=== PATIENT | female | born 1995 | race American Indian/Alaskan Native ===

== ENCOUNTER 2017-11-12 11:34 | Emergency (ER) | payer MEDICAID ==
[2017-11-12] MEDS ORDERED: Promethazine 12.5 MG in Sodium Chloride 0.9% 50 ML IV STA (11:55)
[2017-11-12] MEDS ORDERED: Lactated Ringers 1,000 ML IV ONE ×2 (11:55→13:50)
--- NOTE | 2017-11-12 11:58 | EDM.PDOC ---
ED HPI GENERAL MEDICAL PROBLEM - General Chief Complaint: Gastrointestinal Problem Stated Complaint: VOMITING; 34 WKS PGNT Time Seen by Provider: 11/12/17 11:50 Source of Information: Reports: Patient History Limitations: Reports: No Limitations - History of Present Illness INITIAL COMMENTS - FREE TEXT/NARRATIVE: 21 yo female here with nausea and vomiting that she has had throughout her . Is now at 34 weeks. Was seen yesterday in [place] and received IV fluids and anti-emetics. Her provider is on vacation so she asked the ambulance to take her here today. Says she's never had B6 + doxylamine for nausea of . Does not know what she was given for nausea yesterday in [place], but states it did not work very well for her. Onset: Unknown/Unsure Duration: Chronic Location: Reports: Abdomen Quality: Reports: Ache Severity: Mild Improves with: Reports: None Worsens with: Reports: Eating Context: Reports: Other (nausea and vomiting throughout her ) Associated Symptoms: Reports: Nausea/Vomiting. 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 Other OB/BYN History: Stillborn 10/2016 Dermatologic History: Reports: Other (See Below) Other Dermatologic History: Scabies - Past Surgical History Female Surgical History: Reports: D&C Social & Family History - Tobacco Use Smoking Status *Q: Never Smoker Years of Tobacco use: 10 Packs/Tins Daily: 0.5 - Recreational Drug Use Recreational Drug Use: No Drug Use in Last 12 Months: Yes Recreational Drug Type: Reports: Marijuana/Hashish Recreational Drug Use Frequency: Daily ED ROS GENERAL - Review of Systems Review Of Systems: See Below Constitutional: Reports: No Symptoms HEENT: Reports: No Symptoms Respiratory: Reports: No Symptoms Cardiovascular: Reports: No Symptoms Endocrine: Reports: No Symptoms GI/Abdominal: Reports: No Symptoms : Reports: No Symptoms Musculoskeletal: Reports: No Symptoms Skin: Reports: No Symptoms Neurological: Reports: No Symptoms ED EXAM, GI/ABD - Physical Exam Exam: See Below Exam Limited By: No Limitations General Appearance: Alert, WD/WN, No Apparent Distress Eyes: Bilateral: Normal Appearance, EOMI Ears: Normal External Exam, Normal Canal, Hearing Grossly Normal, Normal TMs Nose: Normal Inspection, Normal Mucosa, No Blood Throat/Mouth: Normal Inspection, Normal Lips, Normal Teeth, Normal Oropharynx, Normal Voice, No Airway Compromise Head: Atraumatic, Normocephalic Neck: Normal Inspection, Supple, Non-Tender Respiratory/Chest: No Respiratory Distress, Lungs Clear, Normal Breath Sounds, No Accessory Muscle Use Cardiovascular: Regular Rate, Rhythm, No Edema GI/Abdominal Exam: Normal Bowel Sounds, Soft, Non-Tender, No Distention, Other ( gravid) Back Exam: Normal Inspection. No: CVA Tenderness (R), CVA Tenderness (L) Extremities: Normal Inspection, Normal Range of Motion, Non-Tender, No Pedal Edema Neurological: Alert, Oriented, CN II-XII Intact, Normal Cognition, No Motor/ Sensory Deficits Psychiatric: Normal Affect, Normal Mood Skin Exam: Warm, Dry, Intact, Normal Color, No Rash Lymphatic: No Adenopathy Course - Vital Signs Last Recorded V/S: Last Vital Signs Temp 35.7 C 11/12/17 11:39 Pulse 65 11/12/17 14:05 Resp 18 11/12/17 14:05 BP 140/74 11/12/17 14:05 Pulse Ox 98 11/12/17 14:05 - Orders/Labs/Meds Labs: Laboratory Tests 11/12/17 11/12/17 11/12/17 Range/Units 11:56 13:42 14:04 Sodium 140 (140-148) mmol/L Potassium 3.5 L (3.6-5.2) mmol/L Chloride 106 (100-108) mmol/L Carbon Dioxide 23 (21-32) mmol/L Anion Gap 14.5 H (5.0-14.0) mmol/L BUN 6 L (7-18) mg/dL Creatinine 0.6 (0.6-1.0) mg/dL Est Cr Clr Drug Dosing TNP Estimated GFR (MDRD) > 60 (>60) Glucose 115 H (74-106) mg/dL Calcium 8.2 L (8.5-10.1) mg/dL Magnesium 1.7 L (1.8-2.4) mg/dL Urine Color Yellow Urine Appearance Cloudy Urine pH 8.0 (4.5-8.0) Ur Specific [place] 1.015 (1.008-1.030) Urine Protein Negative (NEGATIVE) mg/dL Urine Glucose (UA) Normal (NEGATIVE) mg/dL Urine Ketones 50 H (NEGATIVE) mg/dL Urine Occult Blood Negative (NEGATIVE) Urine Nitrite Negative (NEGATIVE) Urine Bilirubin Negative (NEGATIVE) Urine Urobilinogen Normal (NORMAL) mg/dL Ur Leukocyte Esterase Negative (NEGATIVE) Urine RBC Not seen (0-5) Urine WBC 0-5 (0-5) Ur Epithelial Cells Many Amorphous Sediment Moderate Urine Bacteria Not seen Urine Mucus Rare Meds: Medications Discontinued Medications Generic Name Dose Route Start Last Admin Trade Name Freq PRN Reason Stop Dose Admin Lactated Ringer's 1,000 mls @ 1,000 mls/hr 11/12/17 11:55 11/12/17 12:37 Ringers, Lactated IV 11/12/17 12:54 1,000 mls/hr BOLUS ONE Administration Promethazine HCl 12.5 mg/ 50.5 mls @ 200 mls/hr 11/12/17 11:55 11/12/17 12:49 Sodium Chloride IV 11/12/17 12:10 Not Given NOW STA Promethazine HCl 12.5 mg/ 50.5 mls @ 150 mls/hr 11/12/17 12:45 11/12/17 12:44 Sodium Chloride IV 11/12/17 13:05 150 mls/hr NOW ONE Administration Lactated Ringer's 1,000 mls @ 1,000 mls/hr 11/12/17 13:50 11/12/17 14:01 Ringers, Lactated IV 11/12/17 14:49 1,000 mls/hr BOLUS ONE Administration Magnesium Oxide 800 mg 11/12/17 13:49 11/12/17 14:01 Magnesium Oxide PO 11/12/17 13:50 800 mg ONETIME ONE Administration Ondansetron HCl 4 mg 11/12/17 13:50 11/12/17 14:01 Zofran Odt PO 11/12/17 13:51 4 mg ONETIME ONE Administration Potassium Chloride 40 meq 11/12/17 13:48 11/12/17 14:01 Klor-Con M20 PO 11/12/17 13:49 40 meq ONETIME ONE Administration Pyridoxine HCl 25 mg 11/12/17 12:28 11/12/17 12:46 Vitamin B6-Pyridoxine PO 11/12/17 12:29 25 mg NOW STA Administration Departure - Departure Time of Disposition: 15:57 Disposition: Home, Self-Care 01 Condition: Fair Clinical Impression: Hyperemesis gravidarum, Mild dehydration - Discharge Information Referrals: PCP,None [Ordering Only Provider] - Forms: ED Department Discharge
[2017-11-12] MEDS ORDERED: Vitamin B6-pyridOXINE 50 MG Tab PO STA (12:28)
[2017-11-12] MEDS ORDERED: Promethazine 12.5 MG in Sodium Chloride 0.9% 50 ML IV ONE (12:45)
[2017-11-12] MEDS ORDERED: Potassium Chloride 20 MEQ Tab.ER PO ONE (13:48)
[2017-11-12] MEDS ORDERED: Magnesium Oxide 400 MG Tab PO ONE (13:49)
[2017-11-12] MEDS ORDERED: Ondansetron 4 MG Tab.DIS PO ONE (13:50)
[2017-11-12 14:06] VITALS: BP 140/74
== END 2017-11-12 16:12 | disposition home or self-care (01) ==
LOC: JP.ED 11:34
DX: O21.1 Hyperemesis gravidarum with metabolic disturbance (principal); Z3A.34 34 weeks gestation of pregnancy; Z72.0 Tobacco use
CPT/HCPCS: 36415; 80048; 81001; 83735; 96361; 96365; 99284; A9270; J2550; J7050; J7120

== ENCOUNTER 2020-02-03 12:04 | Emergency (ER) | payer MEDICAID ==
[2020-02-03] MEDS ORDERED: Ondansetron 4 MG/2 ML SDV IVPUSH ONE (12:26)
[2020-02-03] MEDS ORDERED: Ketorolac 30 MG/ML SDV IVPUSH ONE (12:26)
--- NOTE | 2020-02-03 12:26 | EDM.PDOC ---
ED HPI GENERAL MEDICAL PROBLEM - General Chief Complaint: Abdominal Pain Stated Complaint: MED VIA [facility] Time Seen by Provider: 02/03/20 12:17 Source of Information: Reports: Patient - History of Present Illness INITIAL COMMENTS - FREE TEXT/NARRATIVE: 24 year old female presents to ER with acute onset abdominal pain this am. She presents via EMS this am from home. Patient delivered baby 3 weeks ago, all babies delivery vaginally, per patient. Patient had hyperemesis throughout . Patient has not taken any medications this am and no available nausea medications at home. Patient was in a normal state for health yesterday without pain, nausea or acute concerns. Patient denies alcohol or marijuana use last night. Patient denies urinary symptoms and had a normal bowel movement this am. Patient denies fever, ST, URI symptoms or cough. - Related Data Allergies Allergy/AdvReac Type Severity Reaction Status Date / Time No Known Allergies Allergy Verified 02/03/20 12:10 Home Meds: Home Meds Magnesium 250 - 500 mg PO BEDTIME 30 Days #60 tablet 02/03/20 [Rx] Ondansetron [Zofran ODT] 4 mg PO Q6H PRN 2 Days #5 tab.dis 02/03/20 [Rx] Promethazine [Phenadoz] 25 mg RECTAL Q6H PRN 5 Days #10 supp 02/03/20 [Rx] Past Medical History - Past Health History Medical/Surgical History: Denies Medical/Surgical History HEENT History: Reports: Other (See Below) Other HEENT History: Multiple piercings Gastrointestinal History: Reports: Other (See Below) Other Gastrointestinal History: Chronic abdmonial pain X 2 years 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 Reason Not Obtained: limited due to mumbling and decline questioning ED EXAM, GI/ABD - Physical Exam Exam: See Below General Appearance: Alert, WD/WN, Moderate Distress (moving around in bed due to nausea and vague non focal abdominal pain) Eyes: Bilateral: Normal Appearance, EOMI Ears: Normal External Exam Nose: Normal Inspection Throat/Mouth: Normal Voice, No Airway Compromise Head: Atraumatic Neck: Normal Inspection, Supple, Non-Tender, Full Range of Motion Respiratory/Chest: No Respiratory Distress, Lungs Clear, Normal Breath Sounds Cardiovascular: Regular Rate, Rhythm, No Edema GI/Abdominal Exam: Soft, Tender (vague no focal discomfort ). No: Distended, Guarding, Rigid, Rebound (Female) Exam: Deferred Rectal (Female) Exam: Deferred Back Exam: Normal Inspection. No: CVA Tenderness (R), CVA Tenderness (L) Extremities: Normal Inspection. No: Limited Range of Motion Neurological: Alert, Oriented, CN II-XII Intact, Normal Cognition Psychiatric: Anxious Skin Exam: Warm, Dry, Intact, Normal Color, No Rash Course - Vital Signs Last Recorded V/S: Last Vital Signs Temp 36.4 C 02/03/20 15:33 Pulse 64 02/03/20 15:33 Resp 16 02/03/20 15:33 BP 133/84 02/03/20 16:35 Pulse Ox 98 02/03/20 15:33 - Orders/Labs/Meds Labs: Laboratory Tests 02/03/20 02/03/20 02/03/20 Range/Units 12:40 12:40 13:26 Sodium 145 (140-148) mmol/L Potassium 3.5 L (3.6-5.2) mmol/L Chloride 110 H (100-108) mmol/L Carbon Dioxide 19 L (21-32) mmol/L Anion Gap 19.5 H (5.0-14.0) mmol/L BUN 9 (7-18) mg/dL Creatinine 0.6 (0.6-1.0) mg/dL Est Cr Clr Drug Dosing 103.85 mL/min Estimated GFR (MDRD) > 60 (>60) Glucose 115 H (74-106) mg/dL Calcium 8.2 L (8.5-10.1) mg/dL Magnesium 1.4 L (1.8-2.4) mg/dL C-Reactive Protein 0.04 (0.0-0.3) mg/dL Urine Color Yellow (YELLOW) Urine Appearance Clear (CLEAR) Urine pH 7.5 (5.0-8.0) Ur Specific [place] >= 1.030 (1.008-1.030) Urine Protein Negative (NEGATIVE) mg/dL Urine Glucose (UA) Negative (NEGATIVE) mg/dL Urine Ketones 40 H (NEGATIVE) mg/dL Urine Occult Blood Moderate H (NEGATIVE) Urine Nitrite Negative (NEGATIVE) Urine Bilirubin Negative (NEGATIVE) Urine Urobilinogen 0.2 (0.2-1.0) EU/dL Ur Leukocyte Esterase Negative (NEGATIVE) Urine RBC 10-20 H (0-5) Urine WBC 0-5 (0-5) Ur Epithelial Cells Many Amorphous Sediment Few Urine Bacteria Not seen Urine Mucus Rare Meds: Medications Discontinued Medications Generic Name Dose Route Start Last Admin Trade Name Freq PRN Reason Stop Dose Admin Diphenhydramine HCl 50 mg 02/03/20 13:21 02/03/20 13:37 Benadryl IVPUSH 02/03/20 13:22 50 mg ONETIME ONE Administration Sodium Chloride 1,000 mls @ 500 mls/hr 02/03/20 12:30 02/03/20 12:31 Normal Saline IV 500 mls/hr ASDIRECTED JORDI Administration Magnesium Sulfate 2 gm/ Premix 50 mls @ 12.5 mls/hr 02/03/20 13:15 02/03/20 13:22 IV 02/03/20 17:14 12.5 mls/hr ONETIME ONE Administration Sodium Chloride 1,000 mls @ 500 mls/hr 02/03/20 14:30 Normal Saline IV ASDIRECTED JORDI Ketorolac Tromethamine 30 mg 02/03/20 12:26 02/03/20 12:31 Toradol IVPUSH 02/03/20 12:27 30 mg ONETIME ONE Administration Olanzapine 5 mg 02/03/20 13:22 02/03/20 13:37 Zyprexa IM 02/03/20 13:23 5 mg ONETIME ONE Administration Ondansetron HCl 4 mg 02/03/20 12:26 02/03/20 12:31 Zofran IVPUSH 02/03/20 12:27 4 mg ONETIME ONE Administration - Re-Assessments/Exams Free Text/Narrative Re-Assessment/Exam: Reassessment completed: symptoms briefly improved with medications but recurrent symptoms and requesting hot shower. Patient wants heating pad plugged in to help with symptoms. Patient is educated about hot shower and heating pad is the usually treatment for hyperemesis due to marijuana use "I have been told about that and I do not want to talk about it". Laboratory results available noting normal BMP and CRP. Magnesium test noting low result which may be a result of vomiting or the reason for vomiting. Magnesium 2GM IV ordered. Patient will be given anxiety/sedative drugs for the treatment of hyperemesis cannabis. 02/03/20 13:23 Urine test available which show dehydration and slight amount of blood (patient reports) still bleeding after vaginal delivery 3 weeks ago. Repeat liter of fluids ordered due to dehydration concerns. 02/03/20 14:14 Reassessed patient, symptoms are much improved and feel well enough to drink water. If able to keep po fluids down she may be discharged home with a safe ride. Patient is prescribed nausea medications for home use. 02/03/20 14:42 Patient is sleeping and recently declined po fluids. Nursing staff will allow her to sleep at this time, as she will need a safe ride for discharge. 02/03/20 15:56 Departure - Departure Time of Disposition: 17:00 Disposition: Home, Self-Care 01 Clinical Impression: Vomiting, Dehydration, Hypomagnesemia - Discharge Information Prescriptions: Magnesium 250 - 500 mg PO BEDTIME 30 Days #60 tablet Ondansetron [Zofran ODT] 4 mg PO Q6H PRN 2 Days #5 tab.dis PRN Reason: Vomiting Promethazine [Phenadoz] 25 mg RECTAL Q6H PRN 5 Days #10 supp PRN Reason: Nausea Instructions: Hypomagnesemia, Vomiting, Adult, Dehydration, Adult Referrals: PCP,None [Primary Care Provider] - Forms: ED Department Discharge Additional Instructions: 1. Increase fluid intake recommended due to dehydration. 2. Magnesium 400mg 1-2 tablets at bedtime for prevention of low magnesium. 3. Continue breast feeding 3 week old infant but may be difficult if you are dehydrated. 4. Zofran ODT 4-8mg as needed for nausea and vomiting. 5. Phenergan SC as needed for nausea and vomiting if zofran does not help. 6. Call PCP for recheck in 3-5 days if not improving, sooner if symptoms worsen or new concerns. 7. Return to ER if worsening symptoms over the weekend. Sepsis Event Note - Evaluation Sepsis Screening Result: No Definite Risk - Focused Exam Date Exam was Performed: 02/04/20 Time Exam was Performed: 15:04 - Problem List & Annotations (1) Hypomagnesemia SNOMED Code(s): 503409349 Code(s): E83.42 - HYPOMAGNESEMIA Status: Acute (2) Mild dehydration SNOMED Code(s): 5269524131317 Code(s): E86.0 - DEHYDRATION Status: Acute
[2020-02-03] MEDS ORDERED: Sodium Chloride 0.9% 1,000 ML IV SCH ×2 (12:30→14:30)
[2020-02-03] MEDS ORDERED: Magnesium Sulfate/Water 2 GM in Premix Bag 1 BAG IV ONE (13:15)
[2020-02-03] MEDS ORDERED: diphenhydrAMINE 50 MG/ML SDV IVPUSH ONE (13:21)
[2020-02-03] MEDS ORDERED: OLANZapine 10 MG Vial IM ONE (13:22)
[2020-02-03 15:35] VITALS: PULSE 64
[2020-02-03 16:35] VITALS: BP 133/84
== END 2020-02-03 17:22 | disposition home or self-care (01) ==
LOC: JP.ED 12:04
DX: O99.285 Endocrine, nutritional and metabolic diseases complicating the puerperium (principal); E86.0 Dehydration; E83.42 Hypomagnesemia; O99.335 Smoking (tobacco) complicating the puerperium; F17.210 Nicotine dependence, cigarettes, uncomplicated
CPT/HCPCS: 36415; 80048; 81001; 83735; 86140; 96361; 96365; 96366; 96372; 96375; 99284; J1200; J1885; J2405; J3475; J3490; J7030

== ENCOUNTER 2020-04-19 12:43 | Emergency (ER) | payer MEDICAID ==
[2020-04-19 12:50] VITALS: BP 112/65; PULSE 70
[2020-04-19] MEDS ORDERED: Lactated Ringers 1,000 ML IV ONE (12:58)
[2020-04-19] MEDS ORDERED: Ketorolac 30 MG/ML SDV IVPUSH ONE (12:59)
[2020-04-19] MEDS ORDERED: Prochlorperazine 10 MG/2 ML SDV IVPUSH ONE (12:59)
[2020-04-19] MEDS ORDERED: diphenhydrAMINE 50 MG/ML SDV IVPUSH ONE (12:59)
--- NOTE | 2020-04-19 13:11 | EDM.PDOC ---
ED HPI GENERAL MEDICAL PROBLEM - General Chief Complaint: Abdominal Pain Stated Complaint: MEDICAL [facility]IA [facility] Time Seen by Provider: 04/19/20 13:05 Source of Information: Reports: Patient, EMS, Old Records History Limitations: Reports: No Limitations - History of Present Illness INITIAL COMMENTS - FREE TEXT/NARRATIVE: 24 yo NA female daily marijuana user presents from her home via EMS for nausea, vomiting and abdominal pain since night. Has a pHx of cannabinoid hyperemesis syndrome and was seen in the [place] ER yesterday where they felt she had this same condition. She decided to come here today instead of returning there because they "only gave her one bad of IV fluids and wouldn't give her Dilaudid". She does not have a primary care provider. She denies fever, hematemesis or melena. Is asking if she can have a hot shower. Had a neg preg test yesterday. Her tx included Toradol, Reglan, and diphenhydramine and according to [facility] records was improved when she was discharged. Onset: Gradual Onset Date: 04/17/20 Duration: Day(s): (1.5) Location: Reports: Abdomen Quality: Reports: Other (cramping) Severity: Moderate Improves with: Reports: Medication Worsens with: Reports: Other (? marijuana use) Context: Reports: Other (See HPI) Associated Symptoms: Reports: Nausea/Vomiting. Denies: Fever/Chills Treatments CEO & BOARD DIRECTOR: Reports: Other (see below) (none today) - Related Data Allergies Allergy/AdvReac Type Severity Reaction Status Date / Time No Known Allergies Allergy Verified 04/19/20 12:50 Home Meds: Home Meds Ondansetron [Zofran ODT] 4 mg PO Q6H PRN #6 tab.dis 04/19/20 [Rx] Past Medical History - Past Health History Medical/Surgical History: Denies Medical/Surgical History HEENT History: Reports: Other (See Below) Other HEENT History: Multiple piercings Gastrointestinal History: Reports: Other (See Below) Other Gastrointestinal History: Chronic abdmonial pain X 2 years 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: , 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 Denies: Fever, Chills HEENT: Reports: No Symptoms Respiratory: Reports: No Symptoms Cardiovascular: Reports: No Symptoms GI/Abdominal: Reports: Abdominal Pain : Reports: No Symptoms Musculoskeletal: Reports: No Symptoms Skin: Reports: No Symptoms Neurological: Reports: No Symptoms ED EXAM, GI/ABD - Physical Exam Exam: See Below Exam Limited By: No Limitations General Appearance: Alert, WD/WN, No Apparent Distress Eyes: Bilateral: Normal Appearance Ears: Normal External Exam, Normal Canal, Hearing Grossly Normal Nose: Normal Inspection, No Blood Throat/Mouth: Normal Inspection, Normal Lips, Normal Oropharynx, Normal Voice, No Airway Compromise Head: Atraumatic, Normocephalic Neck: Normal Inspection Respiratory/Chest: No Respiratory Distress, Lungs Clear, Normal Breath Sounds, No Accessory Muscle Use Cardiovascular: Regular Rate, Rhythm, No Edema GI/Abdominal Exam: Normal Bowel Sounds, Soft, Non-Tender, No Distention Back Exam: Normal Inspection. No: CVA Tenderness (R), CVA Tenderness (L) Extremities: Normal Inspection, Normal Range of Motion, Non-Tender, No Pedal Edema. No: Pedal Edema Neurological: Alert, Oriented, CN II-XII Intact, Normal Cognition, No Motor/Sensory Deficits Psychiatric: Normal Affect, Normal Mood Skin Exam: Warm, Dry, Intact, Normal Color, No Rash Course - Vital Signs Last Recorded V/S: Last Vital Signs Temp 36.6 C 04/19/20 12:56 Pulse 70 04/19/20 12:56 Resp 10 L 04/19/20 12:56 BP 112/65 04/19/20 12:56 Pulse Ox 99 04/19/20 12:56 - Orders/Labs/Meds Meds: Medications Discontinued Medications Generic Name Dose Route Start Last Admin Trade Name Freq PRN Reason Stop Dose Admin Diphenhydramine HCl 50 mg 04/19/20 12:59 04/19/20 13:19 Benadryl IVPUSH 04/19/20 13:00 50 mg ONETIME ONE Administration Lactated Ringer's 1,000 mls @ 1,000 mls/hr 04/19/20 12:58 04/19/20 13:10 Ringers, Lactated IV 04/19/20 13:57 1,000 mls/hr BOLUS ONE Administration Ketorolac Tromethamine 30 mg 04/19/20 12:59 04/19/20 13:17 Toradol IVPUSH 04/19/20 13:00 30 mg ONETIME ONE Administration Prochlorperazine Edisylate 10 mg 04/19/20 12:59 04/19/20 13:12 Compazine IVPUSH 04/19/20 13:00 10 mg ONETIME ONE Administration - Re-Assessments/Exams Free Text/Narrative Re-Assessment/Exam: 04/19/20 13:49 Is sleeping comfortably. Departure - Departure Time of Disposition: 14:15 Disposition: Home, Self-Care 01 Condition: Fair Clinical Impression: Cannabinoid hyperemesis syndrome - Discharge Information *PRESCRIPTION DRUG MONITORING PROGRAM REVIEWED*: No *COPY OF PRESCRIPTION DRUG MONITORING REPORT IN PATIENT SANIA: No Prescriptions: Ondansetron [Zofran ODT] 4 mg PO Q6H PRN #6 tab.dis PRN Reason: Nausea Instructions: Cannabis Use Disorder Referrals: PCP,None [Primary Care Provider] - Forms: ED Department Discharge Additional Instructions: Avoid use of marijuana to eventually prevent a recurrence of what you are experiencing today. Get established with a primary care provider of your choice for follow up. Use Zofran as needed for nausea control. Sepsis Event Note (ED) - Evaluation Sepsis Screening Result: No Definite Risk - Focused Exam Vital Signs: Vital Signs Temp Pulse Resp BP Pulse Ox 04/19/20 12:56 36.6 C 70 10 L 112/65 99 04/19/20 12:48 36.6 C 70 10 L 112/65 99
== END 2020-04-19 14:50 | disposition home or self-care (01) ==
LOC: JP.ED 12:43
DX: R11.2 Nausea with vomiting, unspecified (principal); F17.210 Nicotine dependence, cigarettes, uncomplicated
CPT/HCPCS: 96361; 96374; 96375; 99284; J0780; J1200; J1885; J7120

== ENCOUNTER 2020-07-17 20:57 | Emergency (ER) | payer MEDICAID ==
[2020-07-17 23:53] VITALS: PULSE 72
[2020-07-18] MEDS ORDERED: Ondansetron 4 MG/2 ML SDV IVPUSH ONE (00:31)
[2020-07-18] MEDS ORDERED: Sodium Chloride 0.9% 1,000 ML IV ONE (00:31)
[2020-07-18] MEDS ORDERED: HYDROmorphone 0.5 MG/0.5 ML Syringe IVPUSH ONE (00:31)
[2020-07-18] MEDS ORDERED: Sodium Chloride 0.9% 80 ML IV SCH (00:45)
[2020-07-18] MEDS ORDERED: Iopamidol 612 MG/ML 100 ML Bottle IV SCH (00:45)
--- NOTE | 2020-07-18 01:22 | EDM.PDOC ---
ED HPI GENERAL MEDICAL PROBLEM - General Chief Complaint: Abdominal Pain Stated Complaint: ABD PAIN VIA NORTH Time Seen by Provider: 07/18/20 00:08 Source of Information: Reports: Patient, EMS History Limitations: Reports: No Limitations - History of Present Illness INITIAL COMMENTS - FREE TEXT/NARRATIVE: Baylee is a 24-year-old female presenting to the ED with 2-day history of abdominal pain, nausea and vomiting, and diarrhea. The patient underwent an elective at [facility] in [place] 2 days ago. She states that after the which was a suction , she started to feel ill and on the ride home started vomiting. 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 She has had minimal bleeding since the elective . She states that she may have had a fever after leaving the [facility] clinic and was having chills. She denies having any current fever but still has intermittent chills and some diaphoresis at times. She also has not been able to eat or drink much because of the degree of nausea and vomiting. She is starting to feel lightheaded. Her predominant complaint is abdominal cramping throughout the abdomen. 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 abortionx2 Hematologic History: Reports: Anemia Dermatologic History: Reports: Other (See Below) Other Dermatologic History: Scabies - Infectious Disease History Infectious Disease History: Reports: Chicken Pox, MRSA, Other (See Below) Other Infectious Disease History: MRSA in nose - Past Surgical History Female Surgical History: Reports: D&C Social & Family History - Tobacco Use Tobacco Use Status *Q: Current Every Day Tobacco User Years of Tobacco use: 10 Packs/Tins Daily: 0.5 - Caffeine Use Caffeine Use: Reports: None - Recreational Drug Use Recreational Drug Use: Yes Drug Use in Last 12 Months: Yes Recreational Drug Type: Reports: Marijuana/Hashish Recreational Drug Use Frequency: Socially ED ROS GENERAL - Review of Systems Review Of Systems: See Below Constitutional: Reports: Fever, Chills, Malaise, Decreased Appetite HEENT: Reports: No Symptoms Respiratory: Reports: No Symptoms Cardiovascular: Reports: No Symptoms ( ) Endocrine: Reports: No Symptoms GI/Abdominal: Reports: Abdominal Pain, Diarrhea, Nausea, Vomiting : Reports: Pain, Other (Light bleeding) Musculoskeletal: Reports: No Symptoms Skin: Reports: No Symptoms Neurological: Reports: No Symptoms Psychiatric: Reports: No Symptoms Hematologic/Lymphatic: Reports: No Symptoms Immunologic: Reports: No Symptoms ED EXAM, GI/ABD - Physical Exam Exam: See Below Exam Limited By: No Limitations General Appearance: Alert, WD/WN, Mild Distress Eyes: Bilateral: EOMI Throat/Mouth: Normal Inspection, Normal Lips, Other (Mucous membranes are dry) Head: Atraumatic, Normocephalic Neck: Normal Inspection, Supple, Non-Tender, Full Range of Motion Respiratory/Chest: No Respiratory Distress, Lungs Clear, Normal Breath Sounds, No Accessory Muscle Use, Chest Non-Tender Cardiovascular: Normal Peripheral Pulses, Regular Rate, Rhythm, No Edema, No Gallop, No JVD, No Murmur, No Rub GI/Abdominal Exam: Guarding, Tender (Diffusely tender with tympany to percussion throughout the abdomen), Abnormal Bowel Sounds (Hyperactive bowel sounds). No: Distended, Rigid, Rebound (Female) Exam: Deferred Rectal (Female) Exam: Deferred Back Exam: Normal Inspection, Full Range of Motion Extremities: Normal Inspection, Normal Range of Motion, Non-Tender, No Pedal Edema, Normal Capillary Refill Neurological: Alert, Oriented, Normal Cognition, No Motor/Sensory Deficits Psychiatric: Normal Affect, Anxious Skin Exam: Warm, Dry Lymphatic: No Adenopathy Course - Vital Signs Last Recorded V/S: Last Vital Signs Temp 35.9 C L 07/17/20 22:16 Pulse 72 07/17/20 23:52 Resp 18 07/18/20 01:44 BP 106/56 L 07/18/20 01:44 Pulse Ox 100 07/18/20 01:44 - Orders/Labs/Meds Orders: Active Orders 24 hr Category Date Time Status Pelvis Non OB Ltd [US] Stat Exams 07/18/20 01:32 Taken VL Duplex Abd Pel Ret Ltd [US] Stat Exams 07/18/20 02:55 Taken CORONAVIRUS COVID-19, AIME Stat Lab 07/18/20 03:20 Ordered TYPE AND SCREEN [BBK] Stat Lab 07/18/20 03:21 Ordered Iopamidol [Isovue-300 (61%)] Med 07/18/20 00:45 Active 81 ml IV . DIRECTED Sodium Chloride 0.9% [Normal Saline] 80 ml Med 07/18/20 00:45 Active IV ASDIRECTED Medication Orders Sodium Chloride (Normal Saline) 80 mls @ 3 mls/sec IV ASDIRECTED JORDI Last Admin: 07/18/20 01:00 Dose: 3 mls/sec Documented by: [email or web address] Iopamidol (Isovue-300 (61%)) 81 ml IV . DIRECTED JORDI Last Admin: 07/18/20 01:00 Dose: 81 ml Documented by: [email or web address] Labs: Laboratory Tests 07/18/20 07/18/20 07/18/20 Range/Units 00:40 00:40 00:40 WBC 10.4 (4.5-11.0) K/uL RBC 3.88 (3.30-5.50) M/uL Hgb 11.1 L (12.0-15.0) g/dL Hct 33.6 L (36.0-48.0) % MCV 87 (80-98) fL MCH 29 (27-31) pg MCHC 33 (32-36) % Plt Count 206 (150-400) K/uL Neut % (Auto) 67 H (36-66) % Lymph % (Auto) 27 (24-44) % Addison % (Auto) 6 (2-6) % Eos % (Auto) 0 L (2-4) % Baso % (Auto) 0 (0-1) % Sodium 135 L (140-148) mmol/L Potassium 3.4 L (3.6-5.2) mmol/L Chloride 103 (100-108) mmol/L Carbon Dioxide 20 L (21-32) mmol/L Anion Gap 15.4 H (5.0-14.0) mmol/L BUN 20 H D (7-18) mg/dL Creatinine 0.8 (0.6-1.0) mg/dL Est Cr Clr Drug Dosing 77.89 mL/min Estimated GFR (MDRD) > 60 (>60) Glucose 90 (74-106) mg/dL Lactic Acid 0.5 (0.4-2.0) mmol/L Calcium 8.0 L (8.5-10.1) mg/dL Total Bilirubin 0.4 (0.2-1.0) mg/dL AST 11 L (15-37) U/L ALT 18 (12-78) U/L Alkaline Phosphatase 50 (46-116) U/L C-Reactive Protein 0.52 H (0.0-0.3) mg/dL Total Protein 6.7 (6.4-8.2) g/dL Albumin 3.6 (3.4-5.0) g/dL Globulin 3.1 (2.3-3.5) g/dL Albumin/Globulin Ratio 1.2 (1.2-2.2) Urine Color (YELLOW) Urine Appearance (CLEAR) Urine pH (5.0-8.0) Ur Specific Dutton (1.008-1.030) Urine Protein (NEGATIVE) mg/dL Urine Glucose (UA) (NEGATIVE) mg/dL Urine Ketones (NEGATIVE) mg/dL Urine Occult Blood (NEGATIVE) Urine Nitrite (NEGATIVE) Urine Bilirubin (NEGATIVE) Urine Urobilinogen (0.2-1.0) EU/dL Ur Leukocyte Esterase (NEGATIVE) Urine RBC (0-5) Urine WBC (0-5) Ur Epithelial Cells Amorphous Sediment Urine Bacteria Urine Mucus 07/18/20 Range/Units 01:19 WBC (4.5-11.0) K/uL RBC (3.30-5.50) M/uL Hgb (12.0-15.0) g/dL Hct (36.0-48.0) % MCV (80-98) fL MCH (27-31) pg MCHC (32-36) % Plt Count (150-400) K/uL Neut % (Auto) (36-66) % Lymph % (Auto) (24-44) % Addison % (Auto) (2-6) % Eos % (Auto) (2-4) % Baso % (Auto) (0-1) % Sodium (140-148) mmol/L Potassium (3.6-5.2) mmol/L Chloride (100-108) mmol/L Carbon Dioxide (21-32) mmol/L Anion Gap (5.0-14.0) mmol/L BUN (7-18) mg/dL Creatinine (0.6-1.0) mg/dL Est Cr Clr Drug Dosing mL/min Estimated GFR (MDRD) (>60) Glucose (74-106) mg/dL Lactic Acid (0.4-2.0) mmol/L Calcium (8.5-10.1) mg/dL Total Bilirubin (0.2-1.0) mg/dL AST (15-37) U/L ALT (12-78) U/L Alkaline Phosphatase (46-116) U/L C-Reactive Protein (0.0-0.3) mg/dL Total Protein (6.4-8.2) g/dL Albumin (3.4-5.0) g/dL Globulin (2.3-3.5) g/dL Albumin/Globulin Ratio (1.2-2.2) Urine Color Yellow (YELLOW) Urine Appearance Clear (CLEAR) Urine pH 6.0 (5.0-8.0) Ur Specific Dutton 1.025 (1.008-1.030) Urine Protein 30 H (NEGATIVE) mg/dL Urine Glucose (UA) Negative (NEGATIVE) mg/dL Urine Ketones 40 H (NEGATIVE) mg/dL Urine Occult Blood Moderate H (NEGATIVE) Urine Nitrite Negative (NEGATIVE) Urine Bilirubin Negative (NEGATIVE) Urine Urobilinogen 0.2 (0.2-1.0) EU/dL Ur Leukocyte Esterase Negative (NEGATIVE) Urine RBC 0-5 (0-5) Urine WBC 0-5 (0-5) Ur Epithelial Cells Moderate Amorphous Sediment Not seen Urine Bacteria Moderate Urine Mucus Not seen Meds: Medications Generic Name Dose Route Start Last Admin Trade Name Freq PRN Reason Stop Dose Admin Sodium Chloride 80 mls @ 3 mls/sec 07/18/20 00:45 07/18/20 01:00 Normal Saline IV 3 mls/sec ASDIRECTED JORDI Administration Iopamidol 81 ml 07/18/20 00:45 07/18/20 01:00 Isovue-300 (61%) IV 81 ml . DIRECTED JORDI Administration Discontinued Medications Generic Name Dose Route Start Last Admin Trade Name Yobani PRN Reason Stop Dose Admin Hydromorphone HCl 0.5 mg 07/18/20 00:31 07/18/20 00:41 Dilaudid IVPUSH 07/18/20 00:32 0.5 mg ONETIME ONE Administration Sodium Chloride 1,000 mls @ 999 mls/hr 07/18/20 00:31 07/18/20 00:41 Normal Saline IV 07/18/20 01:31 999 mls/hr .BOLUS ONE Administration Ondansetron HCl 4 mg 07/18/20 00:31 07/18/20 00:41 Zofran IVPUSH 07/18/20 00:32 4 mg ONETIME ONE Administration - Radiology Interpretation Free Text/Narrative:: CT of the abdomen and pelvis shows enhanced hyperdense material in the uterine cavity measuring 4.2 x 2.1 cm. There is also a ring-enhancing lesion in the right ovary measuring 2.5 cm this likely corpus luteal cyst. There is no free air in the pelvis to suggest a uterine rupture or perforation. The remainder the CT is unremarkable. Radiology recommends an ultrasound of the pelvis to evaluate for retained products of conception. Departure - Departure Time of Disposition: 03:26 Disposition: Home, Self-Care 01 Condition: Good Clinical Impression: Acute gastroenteritis, Retained products of conception after induced termination of - Discharge Information *PRESCRIPTION DRUG MONITORING PROGRAM REVIEWED*: Not Applicable *COPY OF PRESCRIPTION DRUG MONITORING REPORT IN PATIENT SANIA: Not Applicable Instructions: Viral Gastroenteritis, Adult, Oyuh-oq-Vady Referrals: PCP,None [Primary Care Provider] - Forms: ED Department Discharge Care Plan Goals: I have arranged for you to follow-up in the morning with Dr. Avalos from [facility]. The address of her clinic office is [address] [place] [address]. Your appointment is for 8:30 in the morning. I will forward the information concerning your type and screen as well as your Covid test to the OB department at [facility] so that they have that information for the morning. Return to the emergency room immediately should you develop any severe bleeding, worsening of cramping, lightheadedness, chest pain, or shortness of breath. I will be sending you home with a prescription for Zofran to control your nausea and vomiting so that you are able to continue to eat and drink normally. Please fill that prescription in the morning. Sepsis Event Note (ED) - Evaluation Sepsis Screening Result: No Definite Risk - Focused Exam Vital Signs: Vital Signs Temp Pulse Resp BP Pulse Ox 07/18/20 01:44 18 106/56 L 100 07/17/20 23:52 72 16 111/55 L 100 07/17/20 22:16 35.9 C L 56 L 17 108/55 L 99 07/17/20 22:14 35.9 C L 56 L 17 108/55 L 99 07/17/20 21:10 60 18 99/52 L 100 - Problem List & Annotations (1) Mild dehydration SNOMED Code(s): 7810742552263 Code(s): E86.0 - DEHYDRATION Status: Acute Priority: Medium Current Visit: Yes (2) Acute gastroenteritis SNOMED Code(s): 06937114 Code(s): K52.9 - NONINFECTIVE GASTROENTERITIS AND COLITIS, UNSPECIFIED Status: Acute Priority: Medium Current Visit: Yes (3) Retained products of conception after induced termination of SNOMED Code(s): 072793230 Code(s): O07.4 - FAILED ATTEMPTED TERMINATION OF W/O COMPLICATION Status: Acute Priority: Medium Current Visit: Yes - Problem List Review Problem List Initiated/Reviewed/Updated: Yes - My Orders Last 24 Hours: My Active Orders 07/18/20 00:45 Iopamidol [Isovue-300 (61%)] 81 ml IV . DIRECTED Sodium Chloride 0.9% [Normal Saline] 80 ml IV ASDIRECTED 07/18/20 01:32 Pelvis Non OB Ltd [US] Stat 07/18/20 02:55 VL Duplex Abd Pel Ret Ltd [US] Stat 07/18/20 03:20 CORONAVIRUS COVID-19, AIME Stat 07/18/20 03:21 TYPE AND SCREEN [BBK] Stat - Assessment/Plan Last 24 Hours: My Active Orders 07/18/20 00:45 Iopamidol [Isovue-300 (61%)] 81 ml IV . DIRECTED Sodium Chloride 0.9% [Normal Saline] 80 ml IV ASDIRECTED 07/18/20 01:32 Pelvis Non OB Ltd [US] Stat 07/18/20 02:55 VL Duplex Abd Pel Ret Ltd [US] Stat 07/18/20 03:20 CORONAVIRUS COVID-19, AIME Stat 07/18/20 03:21 TYPE AND SCREEN [BBK] Stat
--- NOTE | 2020-07-18 01:22 | CRLCT ---
INDICATION: Abdominal pain, post 2 days ago TECHNIQUE: CT Abdomen and pelvis with i.v. contrast. Coronal and sagittal reformats were obtained. CONTRAST: 81 mL Isovue 300 COMPARISON: None FINDINGS: Lower chest: Unremarkable. Liver: Unremarkable. Spleen: Unremarkable. Pancreas: Unremarkable. Gallbladder: Unremarkable. Kidney: Unremarkable. No kidney or ureteral stones or obstruction seen. Adrenal: Unremarkable. Bowel: Unremarkable. The appendix is normal in appearance and size. Vascular: Unremarkable. Lymph: Unremarkable. Peritoneum: Unremarkable. No pneumoperitoneum is seen. No significant ascites is noted. Pelvis: The uterine cavity is distended with hyperdense material that measures 4.2 x 2.1 cm. There is a ring-enhancing lesion in the right ovary that measures 2.5 cm. This is most likely a corpus luteal cyst. Soft tissue: Unremarkable. Bone: Unremarkable for age. IMPRESSION: 1. The uterine cavity is distended with hyperdense material that measures 4.2 x 2.1 cm. Findings may be due to blood products evaluation ultrasound may be helpful to exclude retained products of conception. Dictated by Bereket Singh MD @ 07/18/2020 1:19:54 AM Please note that all CT scans at this facility use dose modulation, iterative reconstruction, and/or weight-based dosing when appropriate to reduce radiation dose to as low as reasonably achievable. Dictated by: Bereket Singh MD @ 07/18/2020 01:20:05 (Electronically Signed)
[2020-07-18 01:45] VITALS: BP 106/56
--- NOTE | 2020-07-18 09:20 | US ---
VL Duplex Abd Pel Ret Ltd, Pelvis Non OB Ltd CLINICAL HISTORY: Increasing pelvic pain postabortion FINDINGS: Real-time transvaginal images were obtained through the uterus. The Doppler images were also performed. Uterus measures 8.6 x 5.3 x 7.4 cm. The myometrium is homogeneous. The endometrium is filled with heterogeneous somewhat echogenic material. This correlates to a distended endometrium seen on CT. There is no blood flow within the endometrial cavity. There is a 1.7 x 1.3 x 1.7 cm cyst in the right ovary. No free fluid seen IMPRESSION: Mildly enlarged uterus Heterogeneous fluid-filled endometrial cavity with debris. The this likely represents blood and probably products of conception.
== END 2020-07-18 03:46 | disposition home or self-care (01) ==
LOC: JP.ED 20:57
DX: O07.39 Failed attempted termination of pregnancy with other complications (principal); K52.9 Noninfective gastroenteritis and colitis, unspecified; F17.210 Nicotine dependence, cigarettes, uncomplicated; Z20.828 Contact with and (suspected) exposure to other viral communicable diseases
CPT/HCPCS: 36415; 74177; 76857; 76857-26; 80053; 81001; 83605; 85025; 86140; 86850; 86900; 86901; 93976; 93976-26; 96374; 96375; 99285-25; J1170; J2405; J7030; Q9967; U0002

== ENCOUNTER 2020-08-26 07:49 | Emergency (ER) | payer MEDICAID ==
[2020-08-26] MEDS ORDERED: Sodium Chloride 0.9% 10 ML Syringe FLUSH PRN (08:20)
[2020-08-26] MEDS ORDERED: Sodium Chloride 0.9% 1,000 ML IV STA (08:20)
[2020-08-26] MEDS ORDERED: Ondansetron 4 MG/2 ML SDV IVPUSH ONE (08:21)
[2020-08-26] MEDS ORDERED: Ketorolac 30 MG/ML SDV IVPUSH ONE (08:21)
--- NOTE | 2020-08-26 08:24 | EDM.PDOC ---
ED HPI GENERAL MEDICAL PROBLEM - General Chief Complaint: Abdominal Pain Stated Complaint: ABDOMINAL PAIN Time Seen by Provider: 08/26/20 08:11 Source of Information: Reports: Patient, RN Notes Reviewed History Limitations: Reports: No Limitations - History of Present Illness INITIAL COMMENTS - FREE TEXT/NARRATIVE: 24-year-old female presents emergency department with a complaint of nausea vomiting abdominal pain has been going on for 2 days. Recently underwent elective suction in July presented to the emergency department here with complaints of abdominal pain evaluation at that time included CT scan and ultrasound ultrasound did show retained products of conception she was set up for follow-up with HUMAN RESOURCES MANAGER and [facility]. Per her report she needed no further evaluation. 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 abortionx2 Hematologic History: Reports: Anemia Dermatologic History: Reports: Other (See Below) Other Dermatologic History: Scabies - Infectious Disease History Infectious Disease History: Reports: Chicken Pox, MRSA, Other (See Below) Other Infectious Disease History: MRSA in nose - Past Surgical History Female Surgical History: Reports: D&C Social & Family History - Tobacco Use Tobacco Use Status *Q: Current Every Day Tobacco User Years of Tobacco use: 10 Packs/Tins Daily: 0.5 Used Tobacco, but Quit: No - Caffeine Use Caffeine Use: Reports: None ED ROS GENERAL - Review of Systems Review Of Systems: See Below Constitutional: Reports: No Symptoms Respiratory: Reports: No Symptoms Cardiovascular: Reports: No Symptoms GI/Abdominal: Reports: Abdominal Pain, Flatus, Nausea, Vomiting : Reports: Irregular Menses ED EXAM, GI/ABD - Physical Exam Exam: See Below Exam Limited By: No Limitations General Appearance: Alert, Mild Distress Respiratory/Chest: No Respiratory Distress, Lungs Clear, Normal Breath Sounds, No Accessory Muscle Use, Chest Non-Tender Cardiovascular: Regular Rate, Rhythm, No Murmur GI/Abdominal Exam: Normal Bowel Sounds, Soft, Non-Tender, No Distention. No: Gu arding Extremities: Normal Inspection, Normal Range of Motion, No Pedal Edema Course - Vital Signs Last Recorded V/S: Last Vital Signs Temp 98.1 F 08/26/20 07:52 Pulse 64 08/26/20 10:08 Resp 16 08/26/20 10:08 BP 104/53 L 08/26/20 10:08 Pulse Ox 97 08/26/20 10:08 - Orders/Labs/Meds Orders: Active Orders 24 hr Category Date Time Status Peripheral IV Care [RC] . DIRECTED Care 08/26/20 08:20 Active Sodium Chloride 0.9% [Saline Flush] Med 08/26/20 08:20 Active 10 ml FLUSH ASDIRECTED PRN Peripheral IV Insertion Adult [OM.PC] Urgent Oth 08/26/20 08:20 Ordered Medication Orders Sodium Chloride (Saline Flush) 10 ml FLUSH ASDIRECTED PRN PRN Reason: Keep Vein Open Last Admin: 08/26/20 08:41 Dose: 10 ml Documented by: [email or web address] Labs: Laboratory Tests 08/26/20 08/26/20 08/26/20 Range/Units 08:33 08:33 08:33 WBC 8.3 (4.5-11.0) K/uL RBC 4.95 (3.30-5.50) M/uL Hgb 14.2 D (12.0-15.0) g/dL Hct 43.0 (36.0-48.0) % MCV 87 (80-98) fL MCH 29 (27-31) pg MCHC 33 (32-36) % Plt Count 250 (150-400) K/uL Neut % (Auto) 78 H (36-66) % Lymph % (Auto) 18 L (24-44) % [place] % (Auto) 4 (2-6) % Eos % (Auto) 0 L (2-4) % Baso % (Auto) 0 (0-1) % Sodium 139 L (140-148) mmol/L Potassium 3.3 L (3.6-5.2) mmol/L Chloride 100 (100-108) mmol/L Carbon Dioxide 23 (21-32) mmol/L Anion Gap 19.3 H (5.0-14.0) mmol/L BUN 26 H (7-18) mg/dL Creatinine 0.9 (0.6-1.0) mg/dL Est Cr Clr Drug Dosing 69.23 mL/min Estimated GFR (MDRD) > 60 (>60) Glucose 151 H (74-106) mg/dL Lactic Acid 2.0 (0.4-2.0) mmol/L Calcium 9.9 D (8.5-10.1) mg/dL HCG, Qual Urine Color (YELLOW) Urine Appearance (CLEAR) Urine pH (5.0-8.0) Ur Specific [place] (1.008-1.030) Urine Protein (NEGATIVE) mg/dL Urine Glucose (UA) (NEGATIVE) mg/dL Urine Ketones (NEGATIVE) mg/dL Urine Occult Blood (NEGATIVE) Urine Nitrite (NEGATIVE) Urine Bilirubin (NEGATIVE) Urine Urobilinogen (0.2-1.0) EU/dL Ur Leukocyte Esterase (NEGATIVE) Urine RBC (0-5) Urine WBC (0-5) Ur Epithelial Cells Amorphous Sediment Urine Bacteria Urine Mucus Urinalysis Comment Urine Opiates Screen (NEGATIVE) Ur Oxycodone Screen (NEGATIVE) Urine Methadone Screen (NEGATIVE) Ur Propoxyphene Screen (NEGATIVE) Ur Barbiturates Screen (NEGATIVE) Ur Tricyclics Screen (NEGATIVE) Ur Phencyclidine Scrn (NEGATIVE) Ur Amphetamine Screen (NEGATIVE) U Methamphetamines Scrn (NEGATIVE) Urine MDMA Screen (NEGATIVE) U Benzodiazepines Scrn (NEGATIVE) U Cocaine Metab Screen (NEGATIVE) U Marijuana (THC) Screen (NEGATIVE) 08/26/20 08/26/20 08/26/20 Range/Units 08:33 09:09 09:09 WBC (4.5-11.0) K/uL RBC (3.30-5.50) M/uL Hgb (12.0-15.0) g/dL Hct (36.0-48.0) % MCV (80-98) fL MCH (27-31) pg MCHC (32-36) % Plt Count (150-400) K/uL Neut % (Auto) (36-66) % Lymph % (Auto) (24-44) % [place] % (Auto) (2-6) % Eos % (Auto) (2-4) % Baso % (Auto) (0-1) % Sodium (140-148) mmol/L Potassium (3.6-5.2) mmol/L Chloride (100-108) mmol/L Carbon Dioxide (21-32) mmol/L Anion Gap (5.0-14.0) mmol/L BUN (7-18) mg/dL Creatinine (0.6-1.0) mg/dL Est Cr Clr Drug Dosing mL/min Estimated GFR (MDRD) (>60) Glucose (74-106) mg/dL Lactic Acid (0.4-2.0) mmol/L Calcium (8.5-10.1) mg/dL HCG, Qual Negative Urine Color Yellow (YELLOW) Urine Appearance Cloudy A (CLEAR) Urine pH 6.0 (5.0-8.0) Ur Specific [place] >= 1.030 (1.008-1.030) Urine Protein >=300 H (NEGATIVE) mg/dL Urine Glucose (UA) Negative (NEGATIVE) mg/dL Urine Ketones 40 H (NEGATIVE) mg/dL Urine Occult Blood Large H (NEGATIVE) Urine Nitrite Negative (NEGATIVE) Urine Bilirubin Small H (NEGATIVE) Urine Urobilinogen 1.0 (0.2-1.0) EU/dL Ur Leukocyte Esterase Negative (NEGATIVE) Urine RBC 0-5 (0-5) Urine WBC 0-5 (0-5) Ur Epithelial Cells Many Amorphous Sediment Occasional Urine Bacteria Few Urine Mucus Moderate Urinalysis Comment Urine Opiates Screen Negative (NEGATIVE) Ur Oxycodone Screen Negative (NEGATIVE) Urine Methadone Screen Negative (NEGATIVE) Ur Propoxyphene Screen Negative (NEGATIVE) Ur Barbiturates Screen Negative (NEGATIVE) Ur Tricyclics Screen Negative (NEGATIVE) Ur Phencyclidine Scrn Negative (NEGATIVE) Ur Amphetamine Screen Negative (NEGATIVE) U Methamphetamines Scrn Negative (NEGATIVE) Urine MDMA Screen Negative (NEGATIVE) U Benzodiazepines Scrn Negative (NEGATIVE) U Cocaine Metab Screen Negative (NEGATIVE) U Marijuana (THC) Screen Presumptive positive H (NEGATIVE) Meds: Medications Generic Name Dose Route Start Last Admin Trade Name Freq PRN Reason Stop Dose Admin Sodium Chloride 10 ml 08/26/20 08:20 08/26/20 08:41 Saline Flush FLUSH 10 ml ASDIRECTED PRN Administration Keep Vein Open Discontinued Medications Generic Name Dose Route Start Last Admin Trade Name Yobani PRN Reason Stop Dose Admin Sodium Chloride 1,000 mls @ 500 mls/hr 08/26/20 08:20 08/26/20 08:40 Normal Saline IV 08/26/20 10:19 500 mls/hr .BOLUS STA Administration Lactated Ringer's 1,000 mls @ 999 mls/hr 08/26/20 10:58 08/26/20 11:15 Ringers, Lactated IV 08/26/20 11:58 999 mls/hr BOLUS ONE Administration Ketorolac Tromethamine 30 mg 08/26/20 08:21 08/26/20 08:34 Toradol IVPUSH 08/26/20 08:22 30 mg ONETIME ONE Administration Ondansetron HCl 4 mg 08/26/20 08:21 08/26/20 08:36 Zofran IVPUSH 08/26/20 08:22 4 mg ONETIME ONE Administration Departure - Departure Time of Disposition: 12:50 Disposition: Home, Self-Care 01 Condition: Fair Clinical Impression: Cannabinoid hyperemesis syndrome - Discharge Information Instructions: Cannabis Use Disorder Referrals: PCP,None [Primary Care Provider] - Forms: ED Department Discharge Additional Instructions: Recommend stop using cannabis, please followup with your primary care provider in 3-5 days if not better, please call return to the emergency department with worsening of symptoms. Sepsis Event Note (ED) - Evaluation Sepsis Screening Result: No Definite Risk - Focused Exam Vital Signs: Vital Signs Temp Pulse Resp BP Pulse Ox 08/26/20 10:08 64 16 104/53 L 97 08/26/20 08:03 65 18 123/78 99 08/26/20 07:52 98.1 F 81 16 123/78 99 - My Orders Last 24 Hours: My Active Orders 08/26/20 08:20 Peripheral IV Care [RC] . DIRECTED Sodium Chloride 0.9% [Saline Flush] 10 ml FLUSH ASDIRECTED PRN Peripheral IV Insertion Adult [OM.PC] Urgent - Assessment/Plan Last 24 Hours: My Active Orders 08/26/20 08:20 Peripheral IV Care [RC] . DIRECTED Sodium Chloride 0.9% [Saline Flush] 10 ml FLUSH ASDIRECTED PRN Peripheral IV Insertion Adult [OM.PC] Urgent Plan: Assessment Acuity = acute Site and laterality = hyperemesis cannabinoid syndrome Etiology = cannabis Manifestations = nausea vomiting abdominal pain Location of injury = Home Lab values = CBC, CMP unremarkable urinalysis does show specific gravity 1.03 drug screen positive for cannabis Plan Good improvement with Zofran Toradol and 2 L of fluid follow-up primary care as needed recommend refrain from cannabis use This note was dictated using [employer] voice recognition software please call with any questions on syntax or grammar.
[2020-08-26 10:10] VITALS: BP 104/53; PULSE 64
[2020-08-26] MEDS ORDERED: Lactated Ringers 1,000 ML IV ONE (10:58)
== END 2020-08-26 12:59 | disposition home or self-care (01) ==
LOC: JP.ED 07:49
DX: R11.2 Nausea with vomiting, unspecified (principal); F12.90 Cannabis use, unspecified, uncomplicated; F17.210 Nicotine dependence, cigarettes, uncomplicated
CPT/HCPCS: 36415; 80048; 80305; 81001; 83605; 84703; 85025; 96374; 96375; 99284; J1885; J2405; J7030; J7120

== ENCOUNTER 2020-09-14 15:43 | Emergency (ER) | payer MEDICAID ==
[2020-09-14 15:50] VITALS: PULSE 73
[2020-09-14 15:59] VITALS: BP 152/98
[2020-09-14] MEDS ORDERED: Sodium Chloride 0.9% 10 ML Syringe FLUSH PRN (16:14)
[2020-09-14] MEDS ORDERED: Ketorolac 30 MG/ML SDV IVPUSH ONE (16:15)
[2020-09-14] MEDS ORDERED: LORazepam 2 MG/ML SDV IVPUSH ONE (16:15)
--- NOTE | 2020-09-14 16:18 | EDM.PDOC ---
ED HPI GENERAL MEDICAL PROBLEM - General Chief Complaint: Abdominal Pain Stated Complaint: NED[facility] Time Seen by Provider: 09/14/20 16:08 Source of Information: Reports: Patient, Old Records, RN Notes Reviewed History Limitations: Reports: No Limitations - History of Present Illness INITIAL COMMENTS - FREE TEXT/NARRATIVE: 24-year-old female presents emergency department today complaint of abdominal pain she arrives by EMS, she states over the last 3 days she has had increasing abdominal pain with nausea and vomiting. Asked for Dilaudid, review of old records she has been here for hyperemesis cannabis syndrome, I did have an opportunity to evaluate her approximately 3 weeks prior same complaint - Related Data Allergies Allergy/AdvReac Type Severity Reaction Status Date / Time No Known Allergies Allergy Verified 09/14/20 15:49 Home Meds: Home Meds NK [No Known Home Meds] 08/26/20 [History] Past Medical History HEENT History: Reports: Impaired Vision, Other (See Below) Other HEENT History: Multiple piercings Gastrointestinal History: Reports: GERD, Other (See Below) Other Gastrointestinal History: Hyperemesis cannabis syndrome DIVISION CHIEF History: Reports: , Spontaneous , Therapeutic Other DIVISION CHIEF History: Stillborn 10/2016. abortionx2 Hematologic History: Reports: Anemia Dermatologic History: Reports: Other (See Below) Other Dermatologic History: Scabies - Infectious Disease History Infectious Disease History: Reports: Chicken Pox, MRSA, Other (See Below) Other Infectious Disease History: MRSA in nose - Past Surgical History Female Surgical History: Reports: D&C Social & Family History - Tobacco Use Tobacco Use Status *Q: Current Every Day Tobacco User Years of Tobacco use: 6 Packs/Tins Daily: 0.5 - Caffeine Use Caffeine Use: Reports: None ED ROS GENERAL - Review of Systems Review Of Systems: See Below Constitutional: Reports: No Symptoms Respiratory: Reports: No Symptoms Cardiovascular: Reports: No Symptoms GI/Abdominal: Reports: Abdominal Pain, Flatus, Nausea, Vomiting. Denies: Constipation, Diarrhea ED EXAM, GI/ABD - Physical Exam Exam: See Below Exam Limited By: No Limitations General Appearance: Alert, Mild Distress Respiratory/Chest: No Respiratory Distress, Lungs Clear, Normal Breath Sounds, No Accessory Muscle Use, Chest Non-Tender Cardiovascular: Regular Rate, Rhythm, No Murmur GI/Abdominal Exam: Normal Bowel Sounds, Soft, Non-Tender, No Organomegaly, No Distention, No Abnormal Bruit, No Mass Course - Vital Signs Last Recorded V/S: Last Vital Signs Temp 97.2 F 09/14/20 15:56 Pulse 73 09/14/20 15:56 Resp 22 H 09/14/20 15:56 BP 152/98 H 09/14/20 15:56 Pulse Ox 97 09/14/20 15:56 - Orders/Labs/Meds Orders: Active Orders 24 hr Category Date Time Status Peripheral IV Care [RC] . DIRECTED Care 09/14/20 16:15 Active Lactated Ringers [Ringers, Lactated] 1,000 ml Med 09/14/20 16:15 Active IV ASDIRECTED Sodium Chloride 0.9% [Saline Flush] Med 09/14/20 16:14 Active 10 ml FLUSH ASDIRECTED PRN Peripheral IV Insertion Adult [OM.PC] Urgent Oth 09/14/20 16:14 Ordered Medication Orders Lactated Ringer's (Ringers, Lactated) 1,000 mls @ 999 mls/hr IV ASDIRECTED JORDI Last Admin: 09/14/20 16:36 Dose: 999 mls/hr Documented by: MARITO Sodium Chloride (Saline Flush) 10 ml FLUSH ASDIRECTED PRN PRN Reason: Keep Vein Open Last Admin: 09/14/20 16:35 Dose: 10 ml Documented by: MARITO Labs: Laboratory Tests 09/14/20 09/14/20 09/14/20 Range/Units 16:14 16:26 16:26 WBC (4.5-11.0) K/uL RBC (3.30-5.50) M/uL Hgb (12.0-15.0) g/dL Hct (36.0-48.0) % MCV (80-98) fL MCH (27-31) pg MCHC (32-36) % Plt Count (150-400) K/uL Neut % (Auto) (36-66) % Lymph % (Auto) (24-44) % [place] % (Auto) (2-6) % Eos % (Auto) (2-4) % Baso % (Auto) (0-1) % Sodium (140-148) mmol/L Potassium (3.6-5.2) mmol/L Chloride (100-108) mmol/L Carbon Dioxide (21-32) mmol/L Anion Gap (5.0-14.0) mmol/L BUN (7-18) mg/dL Creatinine (0.6-1.0) mg/dL Est Cr Clr Drug Dosing mL/min Estimated GFR (MDRD) (>60) Glucose (74-106) mg/dL Lactic Acid 1.1 (0.4-2.0) mmol/L Calcium (8.5-10.1) mg/dL Total Bilirubin (0.2-1.0) mg/dL AST (15-37) U/L ALT (12-78) U/L Alkaline Phosphatase (46-116) U/L Troponin I (0.000-0.056) ng/mL Total Protein (6.4-8.2) g/dL Albumin (3.4-5.0) g/dL Globulin (2.3-3.5) g/dL Albumin/Globulin Ratio (1.2-2.2) Lipase (73-393) U/L Urine Color Brown A (YELLOW) Urine Appearance Cloudy A (CLEAR) Urine pH 6.0 (5.0-8.0) Ur Specific [place] >= 1.030 (1.008-1.030) Urine Protein 100 H (NEGATIVE) mg/dL Urine Glucose (UA) Negative (NEGATIVE) mg/dL Urine Ketones 80 H (NEGATIVE) mg/dL Urine Occult Blood Large H (NEGATIVE) Urine Nitrite Negative (NEGATIVE) Urine Bilirubin Small H (NEGATIVE) Urine Urobilinogen 0.2 (0.2-1.0) EU/dL Ur Leukocyte Esterase Negative (NEGATIVE) Urine RBC 20-30 H (0-5) Urine WBC 0-5 (0-5) Ur Epithelial Cells Moderate Amorphous Sediment Few Urine Bacteria Moderate Urine Mucus Many Urine HCG, Qual Negative Urine Opiates Screen (NEGATIVE) Ur Oxycodone Screen (NEGATIVE) Urine Methadone Screen (NEGATIVE) Ur Propoxyphene Screen (NEGATIVE) Ur Barbiturates Screen (NEGATIVE) Ur Tricyclics Screen (NEGATIVE) Ur Phencyclidine Scrn (NEGATIVE) Ur Amphetamine Screen (NEGATIVE) U Methamphetamines Scrn (NEGATIVE) Urine MDMA Screen (NEGATIVE) U Benzodiazepines Scrn (NEGATIVE) U Cocaine Metab Screen (NEGATIVE) U Marijuana (THC) Screen (NEGATIVE) 0109/14/20 09/14/20 Range/Units 16:31 16:31 17:15 WBC 5.5 (4.5-11.0) K/uL RBC 4.53 (3.30-5.50) M/uL Hgb 12.9 (12.0-15.0) g/dL Hct 40.3 (36.0-48.0) % MCV 89 (80-98) fL MCH 29 (27-31) pg MCHC 32 (32-36) % Plt Count 241 (150-400) K/uL Neut % (Auto) 92 H (36-66) % Lymph % (Auto) 5 L (24-44) % [place] % (Auto) 2 (2-6) % Eos % (Auto) 0 L (2-4) % Baso % (Auto) 0 (0-1) % Sodium 140 (140-148) mmol/L Potassium 3.5 L (3.6-5.2) mmol/L Chloride 105 (100-108) mmol/L Carbon Dioxide 22 (21-32) mmol/L Anion Gap 16.5 H (5.0-14.0) mmol/L BUN 16 (7-18) mg/dL Creatinine 0.7 (0.6-1.0) mg/dL Est Cr Clr Drug Dosing 89.01 mL/min Estimated GFR (MDRD) > 60 (>60) Glucose 117 H (74-106) mg/dL Lactic Acid (0.4-2.0) mmol/L Calcium 9.1 (8.5-10.1) mg/dL Total Bilirubin 0.5 (0.2-1.0) mg/dL AST 16 (15-37) U/L ALT 23 (12-78) U/L Alkaline Phosphatase 69 (46-116) U/L Troponin I < 0.017 (0.000-0.056) ng/mL Total Protein 7.8 (6.4-8.2) g/dL Albumin 4.2 (3.4-5.0) g/dL Globulin 3.6 H (2.3-3.5) g/dL Albumin/Globulin Ratio 1.2 (1.2-2.2) Lipase 79 (73-393) U/L Urine Color (YELLOW) Urine Appearance (CLEAR) Urine pH (5.0-8.0) Ur Specific [place] (1.008-1.030) Urine Protein (NEGATIVE) mg/dL Urine Glucose (UA) (NEGATIVE) mg/dL Urine Ketones (NEGATIVE) mg/dL Urine Occult Blood (NEGATIVE) Urine Nitrite (NEGATIVE) Urine Bilirubin (NEGATIVE) Urine Urobilinogen (0.2-1.0) EU/dL Ur Leukocyte Esterase (NEGATIVE) Urine RBC (0-5) Urine WBC (0-5) Ur Epithelial Cells Amorphous Sediment Urine Bacteria Urine Mucus Urine HCG, Qual Urine Opiates Screen Negative (NEGATIVE) Ur Oxycodone Screen Negative (NEGATIVE) Urine Methadone Screen Negative (NEGATIVE) Ur Propoxyphene Screen Negative (NEGATIVE) Ur Barbiturates Screen Negative (NEGATIVE) Ur Tricyclics Screen Negative (NEGATIVE) Ur Phencyclidine Scrn Negative (NEGATIVE) Ur Amphetamine Screen Negative (NEGATIVE) U Methamphetamines Scrn Negative (NEGATIVE) Urine MDMA Screen Negative (NEGATIVE) U Benzodiazepines Scrn Negative (NEGATIVE) U Cocaine Metab Screen Negative (NEGATIVE) U Marijuana (THC) Screen Presumptive positive H (NEGATIVE) Meds: Medications Generic Name Dose Route Start Last Admin Trade Name Freq PRN Reason Stop Dose Admin Lactated Ringer's 1,000 mls @ 999 mls/hr 09/14/20 16:15 09/14/20 16:36 Ringers, Lactated IV 999 mls/hr ASDIRECTED JORDI Administration Sodium Chloride 10 ml 09/14/20 16:14 09/14/20 16:35 Saline Flush FLUSH 10 ml ASDIRECTED PRN Administration Keep Vein Open Discontinued Medications Generic Name Dose Route Start Last Admin Trade Name Freq PRN Reason Stop Dose Admin Ketorolac Tromethamine 30 mg 09/14/20 16:15 09/14/20 16:35 Toradol IVPUSH 09/14/20 16:16 30 mg ONETIME ONE Administration Lorazepam 1 mg 09/14/20 16:15 09/14/20 16:35 Ativan IVPUSH 09/14/20 16:16 1 mg ONETIME ONE Administration Departure - Departure Time of Disposition: 17:53 Disposition: Home, Self-Care 01 Condition: Fair Clinical Impression: Cannabinoid hyperemesis syndrome - Discharge Information Instructions: Cannabis Use Disorder Referrals: PCP,None [Primary Care Provider] - Forms: ED Department Discharge Additional Instructions: Please followup with your primary care provider in 3-5 days if not better, please call return to the emergency department with worsening of symptoms. Sepsis Event Note (ED) - Evaluation Sepsis Screening Result: No Definite Risk - Focused Exam Vital Signs: Vital Signs Temp Pulse Resp BP Pulse Ox 09/14/20 15:56 97.2 F 73 22 H 152/98 H 97 09/14/20 15:49 97.2 F 73 22 H 172/112 H 97 - My Orders Last 24 Hours: My Active Orders 09/14/20 16:14 Sodium Chloride 0.9% [Saline Flush] 10 ml FLUSH ASDIRECTED PRN Peripheral IV Insertion Adult [OM.PC] Urgent 09/14/20 16:15 Peripheral IV Care [RC] . DIRECTED Lactated Ringers [Ringers, Lactated] 1,000 ml IV ASDIRECTED - Assessment/Plan Last 24 Hours: My Active Orders 09/14/20 16:14 Sodium Chloride 0.9% [Saline Flush] 10 ml FLUSH ASDIRECTED PRN Peripheral IV Insertion Adult [OM.PC] Urgent 09/14/20 16:15 Peripheral IV Care [RC] . DIRECTED Lactated Ringers [Ringers, Lactated] 1,000 ml IV ASDIRECTED Plan: Assessment Acuity = acute Site and laterality = hyperemesis cannabis syndrome Etiology = THC Manifestations = nausea vomiting abdominal pain Location of injury = Home Lab values = CBC CMP unremarkable urinalysis unremarkable urine drug screen positive for THC Plan Good improvement 1 L fluids and Ativan, counseled her on using marijuana discharged to home follow-up primary care as needed This note was dictated using [email or web address] voice recognition software please call with any questions on syntax or grammar.
[2020-09-14] MEDS: Lactated Ringers 1,000 ML IV SCH ×2 (16:36→18:03)
== END 2020-09-14 20:38 | disposition home or self-care (01) ==
LOC: JP.ED 15:43
DX: R11.2 Nausea with vomiting, unspecified (principal); F12.90 Cannabis use, unspecified, uncomplicated; F17.210 Nicotine dependence, cigarettes, uncomplicated
CPT/HCPCS: 36415; 80053; 80305; 81001; 81025; 83605; 83690; 84484; 85025; 96374; 96375; 99284; J1885; J2060; J7120

== ENCOUNTER 2021-01-27 00:49 | Emergency (ER) | payer MEDICAID ==
--- NOTE | 2021-01-27 01:00 | EDM.PDOC ---
ED HPI GENERAL MEDICAL PROBLEM - General Chief Complaint: Abdominal Pain Stated Complaint: MEDICAL [facility] Time Seen by Provider: 01/27/21 01:05 Source of Information: Reports: Patient, EMS History Limitations: Reports: No Limitations - History of Present Illness INITIAL COMMENTS - FREE TEXT/NARRATIVE: 25-year-old female, restricted to another ER, presents by EMS with nausea and vomiting. According to EMS may have picked her up 100s of times over the years, she comes to the rig, lays down and sleeps to the emergency room and then when she arrives to the emergency room she starts acting uncomfortable and gets IV fluids and medications. I reviewed her past history her labs are always normal, vitals are always normal. [facility] and requested to come to [place] because she did not want to go to [place] or [place]. Onset: Unknown/Unsure Duration: Chronic Location: Reports: Abdomen Quality: Reports: Sharp, Stabbing Associated Symptoms: Reports: Nausea/Vomiting, Weakness. Denies: Shortness of Breath abd Pain Score (Numeric/FACES): 7 - Related Data Allergies Allergy/AdvReac Type Severity Reaction Status Date / Time No Known Allergies Allergy Verified 01/27/21 00:59 Home Meds: Home Meds NK [No Known Home Meds] 08/26/20 [History] Past Medical History - Past Health History Medical/Surgical History: Denies Medical/Surgical History HEENT History: Reports: Impaired Vision, Other (See Below) Other HEENT History: Multiple piercings Gastrointestinal History: Reports: GERD, Other (See Below) Other Gastrointestinal History: Hyperemesis cannabis syndrome ENVIRONMENTAL SERVICES MANAGER History: Reports: , Spontaneous , Therapeutic Other ENVIRONMENTAL SERVICES MANAGER History: Stillborn 10/2016. abortionx2 Hematologic History: Reports: Anemia Dermatologic History: Reports: Other (See Below) Other Dermatologic History: Scabies - Infectious Disease History Infectious Disease History: Reports: Chicken Pox, MRSA, Other (See Below) Other Infectious Disease History: MRSA in nose - Past Surgical History Female Surgical History: Reports: D&C Social & Family History - Caffeine Use Caffeine Use: Reports: None ED ROS GENERAL - Review of Systems Review Of Systems: See Below Constitutional: Reports: Malaise, Decreased Appetite. Denies: Fever, Chills Respiratory: Denies: Shortness of Breath Cardiovascular: Denies: Chest Pain GI/Abdominal: Reports: Abdominal Pain, Nausea, Vomiting Skin: Reports: No Symptoms Neurological: Reports: Dizziness, Weakness. Denies: Headache ED EXAM, GI/ABD - Physical Exam Exam: See Below Exam Limited By: No Limitations General Appearance: Alert, No Apparent Distress, Other (Acting uncomfortable but does not appear to be distressed) Eyes: Bilateral: Normal Appearance (Normal hydration, no jaundice) Throat/Mouth: Normal Inspection Head: Atraumatic (Good hydration) Respiratory/Chest: No Respiratory Distress, Lungs Clear Cardiovascular: Regular Rate, Rhythm GI/Abdominal Exam: Normal Bowel Sounds, Soft, Tender (Reacts with some vague tenderness diffusely to abdominal palpation) Course - Vital Signs Last Recorded V/S: Last Vital Signs Temp 98.1 F 01/27/21 00:59 Pulse 69 01/27/21 00:59 Resp 15 01/27/21 00:59 BP 97/59 L 01/27/21 00:59 Pulse Ox 96 01/27/21 00:59 - Orders/Labs/Meds Meds: Medications Discontinued Medications Generic Name Dose Route Start Last Admin Trade Name Yobani PRN Reason Stop Dose Admin Ondansetron HCl 4 mg 01/27/21 01:21 Ondansetron 4 Mg Tab.Dis PO 01/27/21 01:22 ONETIME ONE - Re-Assessments/Exams Free Text/Narrative Re-Assessment/Exam: 01/27/21 01:28 Patient was asking for IV fluids and IV medications. I explained to her that I was aware that she slept all the way to the hospital, and she has been transferred to the hospital in numerous locations and according to EMS typically sleeps all the way to the hospital then developed symptoms. Her labs are always normal. She is restricted to another hospital, so I am only obligated to treat emergency conditions which she does not have. I offered her a Zofran sublingual, some ice water to sip on, and I would give her a few Zofran to take home but I would not be starting an IV or giving her IV medications. Within 5 minutes she walked out of the room showing no apparent symptoms, wanted a phone, called somebody and walked out to the waiting room without any further treatment or signing discharge papers. She looked completely comfortable. Departure - Departure Time of Disposition: 01:30 Disposition: El[facility] 07 Clinical Impression: Vomiting Qualifiers: Vomiting type: unspecified Vomiting Intractability: non-intractable Nausea presence: with nausea Qualified Code(s): R11.2 - Nausea with vomiting, unspecified - Discharge Information Instructions: Nausea and Vomiting, Adult Referrals: PCP,None [Primary Care Provider] - Forms: ED Department Discharge Care Plan Goals: Patient left without treatment or instructions.
[2021-01-27 01:02] VITALS: BP 97/59; PULSE 69
[2021-01-27] MEDS ORDERED: Ondansetron 4 MG Tab.DIS PO ONE (01:21)
== END 2021-01-27 01:23 | disposition left against medical advice (07) ==
LOC: JP.ED 00:49
DX: R11.2 Nausea with vomiting, unspecified (principal); R10.84 Generalized abdominal pain
CPT/HCPCS: 99284

== ENCOUNTER 2021-05-19 11:15 | Emergency (ER) | payer MEDICAID ==
[2021-05-19 11:27] VITALS: BP 132/96; PULSE 73
[2021-05-19] MEDS ORDERED: Ondansetron 4 MG Tab.DIS PO ONE (11:38)
--- NOTE | 2021-05-19 11:38 | EDM.PDOC ---
ED HPI GENERAL MEDICAL PROBLEM - General Chief Complaint: Abdominal Pain Stated Complaint: STOMACH PAIN Time Seen by Provider: 05/19/21 11:30 Source of Information: Reports: Patient History Limitations: Reports: No Limitations - History of Present Illness INITIAL COMMENTS - FREE TEXT/NARRATIVE: 25-year-old female with a longstanding syndrome of recurring nausea and vomiting demanding IV pain medications, presents with 2 days of nausea and vomiting. Very similar to her last presentation that I saw her a few months ago, when I refused narcotics her symptoms resolved and she left. Today she is demanding again IV infusions of fluids and medications. Apparently she started having nausea and vomiting 2 nights ago, thought it was improving but this morning she feels worse again so came in to be seen. She admits she was recently in [place] with similar symptoms. She claims however that she needs to be treated here because she is "restricted to this hospital", however I checked with admitting and there are no such restrictions - Related Data Allergies Allergy/AdvReac Type Severity Reaction Status Date / Time No Known Allergies Allergy Verified 05/19/21 11:24 Home Meds: Home Meds NK [No Known Home Meds] 08/26/20 [History] Past Medical History - Past Health History Medical/Surgical History: Denies Medical/Surgical History HEENT History: Reports: Impaired Vision, Other (See Below) Other HEENT History: Multiple piercings Gastrointestinal History: Reports: GERD, Other (See Below) Other Gastrointestinal History: Hyperemesis cannabis syndrome Genitourinary History: Reports: None BRICKMASON History: Reports: , Spontaneous , Therapeutic Other BRICKMASON History: Stillborn 10/2016. abortionx2 Hematologic History: Reports: Anemia Dermatologic History: Reports: Other (See Below) Other Dermatologic History: Scabies - Infectious Disease History Infectious Disease History: Reports: Chicken Pox, MRSA, Other (See Below) Other Infectious Disease History: MRSA in nose - Past Surgical History Head Surgeries/Procedures: Reports: None HEENT Surgical History: Reports: None GI Surgical History: Reports: None Female Surgical History: Reports: D&C Dermatological Surgical History: Reports: None Social & Family History - Tobacco Use Tobacco Use Status *Q: Current Every Day Tobacco User Years of Tobacco use: 10 Packs/Tins Daily: 0.5 Used Tobacco, but Quit: No Second Hand Smoke Exposure: No - Caffeine Use Caffeine Use: Reports: Soda - Recreational Drug Use Recreational Drug Use: No ED ROS GENERAL - Review of Systems Review Of Systems: See Below Constitutional: Denies: Fever, Chills HEENT: Reports: No Symptoms Respiratory: Denies: Shortness of Breath Cardiovascular: Denies: Chest Pain GI/Abdominal: Reports: Abdominal Pain, Nausea, Vomiting. Denies: Diarrhea : Reports: No Symptoms Skin: Reports: No Symptoms Neurological: Reports: Weakness. Denies: Headache ED EXAM, GI/ABD - Physical Exam Exam: See Below Exam Limited By: No Limitations General Appearance: Alert, Mild Distress (Patient was acting significantly uncomfortable, retching but not vomiting) Eyes: Bilateral: Normal Appearance (Significant hydration, no jaundice, good moisture), EOMI Head: Atraumatic Respiratory/Chest: No Respiratory Distress Cardiovascular: Regular Rate, Rhythm. No: Tachycardia Neurological: Alert, Oriented Psychiatric: Anxious Skin Exam: Warm, Dry Course - Vital Signs Last Recorded V/S: Last Vital Signs Temp 97.8 F 05/19/21 11:27 Pulse 73 05/19/21 11:27 Resp 16 05/19/21 11:27 BP 132/96 H 05/19/21 11:27 Pulse Ox 100 05/19/21 11:27 - Orders/Labs/Meds Meds: Medications Discontinued Medications Generic Name Dose Route Start Last Admin Trade Name Yobani PRN Reason Stop Dose Admin Ondansetron HCl 4 mg 05/19/21 11:38 05/19/21 11:43 Ondansetron 4 Mg Tab.Dis PO 05/19/21 11:39 4 mg ONETIME ONE Administration - Re-Assessments/Exams Free Text/Narrative Re-Assessment/Exam: 05/19/21 11:52 Patient's vitals were normal and her exam showed no evidence of dehydration, eyes were moist and she was even tearful and dramatic. When I explained to her that IV fluids are not beneficial in someone who was not dehydrated, she became angry that I was not starting an IV. I did give her 4 mg of sublingual Zofran and was preparing for further work-up with lab but she insisted she needed an IV to give more medications and fluids. I went back into check how she was doing after the sublingual Zofran and to inform her that I was ordering lab, and she was gone. Departure - Departure Time of Disposition: 11:45 Disposition: [place] 07 Clinical Impression: Nausea and vomiting Qualifiers: Vomiting Intractability: non-intractable - Discharge Information Instructions: Nausea and Vomiting, Adult Referrals: PCP,None [Primary Care Provider] - Forms: ED Department Discharge Care Plan Goals: Patient eloped without a complete evaluation. Sepsis Event Note (ED) - Focused Exam Vital Signs: Vital Signs Temp Pulse Resp BP Pulse Ox 05/19/21 11:27 97.8 F 73 16 132/96 H 100 05/19/21 11:26 97.8 F 73 16 132/96 H 100
== END 2021-05-19 12:05 | disposition left against medical advice (07) ==
LOC: JP.ED 11:15
DX: R11.2 Nausea with vomiting, unspecified (principal); Z72.0 Tobacco use
CPT/HCPCS: 99283; A9270

== ENCOUNTER 2022-07-02 15:36 | Emergency (ER) | payer MEDICAID ==
[2022-07-02 15:51] VITALS: BP 134/95; PULSE 94
== END 2022-07-02 16:39 | disposition home or self-care (01) ==
LOC: JP.ED 15:36
DX: F11.90 Opioid use, unspecified, uncomplicated (principal); K21.9 Gastro-esophageal reflux disease without esophagitis; F17.210 Nicotine dependence, cigarettes, uncomplicated
CPT/HCPCS: 80305-QW; 99284